=== PATIENT | female | born 1965 | race Caucasian/White ===

== ENCOUNTER 2018-11-01 15:38 | Emergency (ER) | payer OTHER ==
[~2018-11-01] VITALS: Ht 162.6 cm; Wt 56.0 kg
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
[2018-11-01 16:44] LABS: BASOPHILS % (AUTO) 0.3 % (0-1); EOSINOPHILS % (AUTO) 0.1 % (0-6); HEMATOCRIT 41.6 % (35.0-45.0); HEMOGLOBIN 14.2 g/dl (12.0-16.0); LYMPHOCYTES # (AUTO) 0.9 X10'3 (1.1-4.8); LYMPHOCYTES % (AUTO) 11.8 % (21-51); MEAN CORPUSCULAR HEMOGLOBIN 30.2 PG (27.0-31.0); MEAN CORPUSCULAR HGB CONC 34.1 g/dL (33.0-36.5); MEAN CORPUSCULAR VOLUME 88.6 FL (78-98); MEAN PLATELET VOLUME 8.7 FL (7.4-10.4); MONOCYTES # (AUTO) 0.5 X10'3 (0-0.9); MONOCYTES % (AUTO) 7.3 % (2-12); NEUTROPHILS # (AUTO) 6.1 X10'3 (1.8-7.7); NEUTROPHILS % (AUTO) 80.5 % (42-75); PLATELET COUNT 246 X10'3 (140-440); RED BLOOD COUNT 4.69 X10'6 (4.20-5.60); RED CELL DISTRIBUTION WIDTH 12.6 % (11.5-14.5); WHITE BLOOD COUNT 7.6 X10'3 (4.5-11.0)
[2018-11-01 16:56] LABS: ALANINE AMINOTRANSFERASE 17 U/L (12-78); ALBUMIN 3.5 G/DL (3.4-5.0); ALBUMIN/GLOBULIN RATIO 1.2 (1.1-1.5); ALKALINE PHOSPHATASE 46 IU/L (46-116); ANION GAP 12 (8-16); ASPARTATE AMINO TRANSFERASE 14 U/L (10-37); BILIRUBIN,TOTAL 1.3 MG/DL (0.1-1.0); BLOOD UREA NITROGEN 9 MG/DL (7-18); BUN/CREATININE RATIO 12.7 (6.6-38.0); CALCIUM 9.4 MG/DL (8.5-10.1); CHLORIDE 102 MMOL/L (99-107); CREATININE 0.71 MG/DL (0.40-0.90); GLUCOSE 112 MG/DL (70-104); POTASSIUM 3.9 MMOL/L (3.5-5.1); SODIUM 139 MMOL/L (135-145); TOTAL CARBON DIOXIDE 24.6 MMOL/L (24-32); TOTAL PROTEIN 6.4 G/DL (6.4-8.2); eGFR 85 ML/MIN
[2018-11-01] MEDS ORDERED: LAMOTRIGINE 200 MG (17:05)
[2018-11-01] MEDS ORDERED: METHYLPHENIDATE 20 MG (17:05)
[2018-11-01 17:06] LABS: ETHANOL < 0.010 GM/DL (0.0-0.010)
[2018-11-01 17:17] LABS: URINE HCG NEGATIVE (NEG)
[2018-11-01 17:30] LABS: URINE AMPHETAMINE SCREEN NEGATIVE (Neg); URINE BARBITUATE SCREEN NEGATIVE (Neg); URINE BENZODIAZEPINES SCREEN NEGATIVE (Neg); URINE CANNABINOID SCREEN POSITIVE (Neg); URINE COCAINE SCREEN NEGATIVE (Neg); URINE METHADONE SCREEN NEGATIVE (Neg); URINE OPIATE SCREEN NEGATIVE (Neg); URINE PHENCYCLIDINE SCREEN NEGATIVE (Neg)
--- NOTE | 2018-11-01 17:34 | NUR ---
Telepsych order called in
--- NOTE | 2018-11-01 18:08 | NUR ---
Telepsychi is Dr. Jacques report given pt ready to see the doctor.
--- NOTE | 2018-11-01 19:04 | NUR ---
ELOPEMENT BAND NUMBER [phone] PLACED ON PT
[2018-11-01] MEDS ORDERED: quetiapine 100mg tablet PO SCH (19:10)
--- NOTE | 2018-11-01 19:11 | NUR ---
TELE PSYCH REPORT SHOWN TO Lis ENNIS, WILL ORDER RECOMMENDED MEDS.
[2018-11-01] MEDS ORDERED: QUEtiapine 25mg tablet PO STA (19:18)
[2018-11-01] MEDS ORDERED: QUEtiapine 25mg tablet PO PRN (19:20)
--- NOTE | 2018-11-01 21:41 | NUR ---
TYLER FROM [facility] CALLED AND PLANS TO TAKE PT UPSTAIRS. [facility]I ART NOTIFIED.
== END 2018-11-01 21:43 ==
LOC: ER 15:39
DX: F29 Unspecified psychosis not due to a substance or known physiological condition (principal); F31.9 Bipolar disorder, unspecified
CPT/HCPCS: 36415; 80053; 80305; 80320; 81025; 84443; 85025; 99285

== ENCOUNTER 2018-11-01 20:30 | Inpatient (IN) | payer BC, OTHER | END 2018-11-13 15:05 | disposition home or self-care (01) | LOC: ADULT MH 20:30 | DX: F90.9 Attention-deficit hyperactivity disorder, unspecified type (principal); Z72.89 Other problems related to lifestyle; F12.90 Cannabis use, unspecified, uncomplicated ==